=== PATIENT | male | born 1995 | race Caucasian/White ===

== ENCOUNTER 2017-02-10 21:51 | Emergency (ER) | payer BC ==
--- NOTE | 2017-02-10 22:25 | PDOC ---
History of Present Illness - General Chief Complaint: Injury Stated Complaint: LT ANKLE INJURY Time Seen by Provider: 02/10/17 22:02 History Source: Patient Exam Limitations: No Limitations - History of Present Illness Initial Comments: 02/10/17 23:19 This is a 22-year-old male who comes in complaining of multiple bug bites to his bilateral lower extremities that are itchy. In addition to that there is some associated swelling of the feet and ankles. Patient is also complaining of some pain to his left ankle. Patient said he twisted his left ankle early this morning. Patient denies any other injuries. Patient did not take anything for the pain. PAST MEDICAL HISTORY: no significant history PAST SURGICAL HISTORY: no significant history FAMILY HISTORY: no pertinant history SOCIAL HISTORY: Pt lives with family and is employed. MEDICATIONS: reviewed ALLERGIES: As per nursing notes Review of Systems General: No fevers or chills, no weakness, no weight loss HEENT: No change in vision. No sore throat,. No ear pain CardioVascular: No chest pain or shortness of breath Respiratory:No cough, or wheezing. Gastrointestinal: no nausea, vomitting, diarrhea or constipation, No rectal bleeding Genitourinary: No dysuria, hematuria, or frequency Musculoskeletal: No joint or muscle pain or swelling Neurologic: No headache, vertigo, dizziness or loss of consciousness Psychiatric: nor depression Skin: No rashes or easy bruising Endocrine: no increased thirst or abnormal weight change Allergic: no skin or latex allergy All other systems reviewed and normal GENERAL: The patient is awake, alert, and fully oriented, in no acute distress. HEAD: Normal with no signs of trauma. EYES: Pupils equal, round and reactive to light, extraocular movements intact, sclera anicteric, conjunctiva clear. EXTREMITIES: Normal range of motion, no edema. Bilateral lower extremities show multiple bug bites, there is some edema and erythema of the area with slight increase in warmth on the left lower leg/ankle foot area. There is no purulence or discharge from any of the bites. Left ankle is mild to moderately swollen with some tenderness over the lateral malleolus. There is no ecchymosis noted. Neurovascular distal is intact. NEUROLOGICAL: Normal speech, normal gait. PSYCH: Normal mood, normal affect. SKIN: Warm, Dry, normal turgor, no rashes or lesions noted. X-ray no acute fracture dislocation of the ankle. Assessment and plan: This is a 22-year-old male who comes in with multiple bug bites of his bilateral lower extremities. Patient has some associated ALLERGIC reaction with itching erythema and swelling to the area as well. The addition to that patient twisted his left ankle and is left ankle. Because of the erythema slight increase in warmth and swelling to the area it is unclear as to whether or not there may also be an early secondary cellulitis secondary to the bites as well. So patient was started on Bactrim for treatment of possible cellulitis, told to take antihistamines and pain medication. Patient also had an x-ray done and was diagnosed with a left ankle sprain. Past History - Past Medical History Allergies/Adverse Reactions: Allergies Allergy/AdvReac Type Severity Reaction Status Date / Time Penicillins Allergy Verified 03/10/13 22:21 Home Medications: Ambulatory Orders No Home Medications 03/10/13 Sulfamethoxazole/Trimethoprim [Bactrim DS -] 1 tab PO BID #14 tablet 02/10/17 - Psycho/Social/Smoking Cessation Hx Anxiety: No Suicidal Ideation: No Smoking Status: No Smoking History: Never smoked Number of Cigarettes Smoked Daily: 0 *DC/Admit/Observation/Transfer Diagnosis at time of Disposition: Left ankle sprain Qualifiers: Encounter type: initial encounter Involved ligament of ankle: unspecified ligament Qualified Code(s): S93.402A - Sprain of unspecified ligament of left ankle, initial encounter Insect bite of leg, left, infected Qualifiers: Encounter type: initial encounter Qualified Code(s): S80.862A - Insect bite ( nonvenomous), left lower leg, initial encounter - Discharge Dispostion Disposition: HOME Condition at time of disposition: Stable - Prescriptions Prescriptions: Sulfamethoxazole/Trimethoprim [Bactrim DS -] 1 tab PO BID #14 tablet - Referrals Referrals: Edelmira Ramos MD [Primary Care Provider] - - Patient Instructions Additional Instructions: Take Tylenol or Motrin as needed for pain take an antihistamine such as Benadryl or a long-acting nondrowsy his antihistamine such as Ivone for the itching To prevent infection or to treat an early infection that may have started take Bactrim 1 tablet twice a day for 7 days Return to the emergency department immediately with ANY new, persistent or worsening symptoms. Continue any medications as previously prescribed by your physician. You should follow up with your primary doctor as soon as possible regarding today's emergency department visit. . Please make sure your doctor reviews the results of your emergency evaluation. Thank you for coming to the Emergency Department today for your care. It was a pleasure to see you today. Please note that your evaluation is INCOMPLETE until you follow-up with your doctor.
[2017-02-10 22:47] VITALS: BP 111/57; PULSE 68; TEMP 98.4; BMI 26.6
[2017-02-10] MEDS ORDERED: SULFAMETHOXAZOLE/TRIMETHOPRIM 800MG/160MG D.S. TABLET PO ONE (23:19)
[2017-02-10] MEDS ORDERED: SULFAMETHOXAZOLE/TRIMETHOPRIM 800MG/160MG D.S. TABLET ONE (23:20)
== END 2017-02-10 23:30 | disposition home or self-care (01) ==
LOC: FER 21:51
DX: S80.862A Insect bite (nonvenomous), left lower leg, initial encounter (principal); S93.402A Sprain of unspecified ligament of left ankle, initial encounter; X58.XXXA Exposure to other specified factors, initial encounter; Y93.9 Activity, unspecified; Y92.9 Unspecified place or not applicable
CPT/HCPCS: 73610-TC-LT; 99282-25

== ENCOUNTER 2019-03-01 21:04 | Emergency (ER) | payer BC, OTHER ==
[2019-03-01] MEDS ORDERED: ONDANSETRON *ODT* 4 MG TABLET SL ONE (21:08)
[2019-03-01 21:22] VITALS: BP 130/80; PULSE 90; TEMP 98.1; BMI 27.3
[2019-03-01] MEDS ORDERED: KETOROLAC TROMETHAMINE 15 MG/ML VIAL IVPUSH ONE (21:26)
[2019-03-01] MEDS ORDERED: SODIUM CHLORIDE 0.9% 500 ML INFUS.BAG IV ONE (21:26)
[2019-03-01] MEDS ORDERED: KETOROLAC TROMETHAMINE 15 MG/ML VIAL ONE (21:31)
[2019-03-01] MEDS ORDERED: ONDANSETRON 4 MG/2 ML VIAL IVPUSH ONE (21:31)
[2019-03-01] MEDS ORDERED: ONDANSETRON 4 MG/2 ML VIAL ONE (21:32)
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
== END 2019-03-01 22:39 | disposition home or self-care (01) ==
LOC: FER 21:04
PROC: 3E0333Z Introduction of Anti-inflammatory into Peripheral Vein, Percutaneous Approach (ICD-10-PCS; principal; 2019-03-01)
PROC: 3E0337Z Introduction of Electrolytic and Water Balance Substance into Peripheral Vein, Percutaneous Approach (ICD-10-PCS; 2019-03-01)
PROC: 3E033GC Introduction of Other Therapeutic Substance into Peripheral Vein, Percutaneous Approach (ICD-10-PCS; 2019-03-01)
DX: R11.0 Nausea (principal); S00.93XD Contusion of unspecified part of head, subsequent encounter; S02.2XXD Fracture of nasal bones, subsequent encounter for fracture with routine healing; H11.32 Conjunctival hemorrhage, left eye; Y04.0XXD Assault by unarmed brawl or fight, subsequent encounter
CPT/HCPCS: 99283-25